=== PATIENT | female | born 1990 | race Caucasian/White ===

== ENCOUNTER 2022-08-10 22:11 | Emergency (ER) | payer BC ==
[2022-08-10] MEDS ORDERED: Mag-Al 1200 mg/1200 mg/30 ML UDCUP ONE (22:40)
[2022-08-10] MEDS ORDERED: Lidocaine Viscous Sol 2% 15 ml UD Cup ONE (22:40)
[2022-08-10] MEDS ORDERED: Ibuprofen 800 MG TAB ONE (22:40)
[2022-08-10 23:52] LABS: SARS-CoV-2 NAA Rapid Test Not Detected (NotDetected)
== END 2022-08-10 23:05 | disposition home or self-care (01) ==
LOC: ERS 22:11
DX: R07.2 Precordial pain (principal); K21.9 Gastro-esophageal reflux disease without esophagitis; Z20.822 Contact with and (suspected) exposure to COVID-19
CPT/HCPCS: 71045; 93005